=== PATIENT | female | born 1995 | race Two or more races ===

== ENCOUNTER 2017-11-08 13:35 | Emergency (ER) | payer OTHER ==
[2017-11-08 13:53] VITALS: BMI 31.7
--- NOTE | 2017-11-08 14:26 | PDOC ---
History of Present Illness - General Chief Complaint: Pain, Acute Stated Complaint: 2 MONTHS /ABD PAIN Time Seen by Provider: 11/08/17 14:25 - History of Present Illness Initial Comments: 22 year old [id number] 9.5 weeks by ultrasound (performed in [place] 2 weeks prior - 7.5 weeks at the time) presenting with LBP radiating to the suprapubic region bilaterally, dysuria, and occasional spotting. States that she was told she had urinary tract infection at her visit two weeks ago in [place] along with an "inflammation of her urinary tract" for which she was given Ampicillin which she finished 4 days prior. She states that she had 48 hours of resolution of her dysuria but prompt return of symptoms. She has light occasional spotting every few days. Denies fevers, chills, nausea, vomiting, diarrhea, constipation , chest pain, SOB, dyspareunia, vaginal discharge, or other sick symtpoms. 11/08/17 15:35 Past History - Past Medical History Allergies/Adverse Reactions: Allergies Allergy/AdvReac Type Severity Reaction Status Date / Time No Known Allergies Allergy Verified 11/08/17 13:47 Home Medications: Ambulatory Orders Nitrofurantoin Monohyd/M-Cryst [Macrobid -] 100 mg PO BID #14 capsule 11/08/17 COPD: No DVT: No - Immunization History Immunization Up to Date: Yes - Suicide/Smoking/Psychosocial Hx Smoking History: Never smoked Have you smoked in the past 12 months: No Information on smoking cessation initiated: No Hx Alcohol Use: No Drug/Substance Use Hx: No Substance Use Type: None Review of Systems - Review of Systems Constitutional: No: Chills, Diaphoresis, Fever HEENTM: No: Eye Pain, Blurred Vision Respiratory: No: Cough, Orthopnea, Shortness of Breath, Stridor, Wheezing Cardiac (ROS): No: Chest Pain, Edema, Irregular Heart Rate, Syncope ABD/GI: No: Constipated, Diarrhea, Nausea, Vomiting : Yes: Dysuria. No: Discharge, Frequency Musculoskeletal: Yes: Back Pain. No: Joint Pain, Joint Swelling, Muscle Weakness, Neck Pain, Joint Stiffness Integumentary: No: Bruising, Lesions, Lumps Neurological: No: Headache, Numbness Endocrine: No: Excessive Sweating, Intolerance to Heat *Physical Exam - Vital Signs Last Vital Signs Temp Pulse Resp BP Pulse Ox 98.5 F 82 17 130/60 96 11/08/17 13:47 11/08/17 13:47 11/08/17 13:47 11/08/17 13:47 11/08/17 13:47 - Physical Exam General Appearance: Yes: Nourished, Appropriately Dressed HEENT: positive: EOMI, SABINO, Normal Voice Neck: positive: Trachea midline, Normal Thyroid, Supple. negative: Tender Respiratory/Chest: positive: Lungs Clear, Normal Breath Sounds. negative: Chest Tender, Respiratory Distress, Accessory Muscle Use Cardiovascular: positive: Regular Rhythm, Regular Rate Gastrointestinal/Abdominal: positive: Normal Bowel Sounds, Tender (Bilasteral mild suprapubic tenderness), Flat, Soft Musculoskeletal: positive: Normal Inspection. negative: CVA Tenderness Extremity: positive: Normal Capillary Refill, Normal Inspection Integumentary: positive: Normal Color, Dry, Warm Neurologic: positive: Fully Oriented, Alert, Normal Mood/Affect, Normal Response , Motor Strength 5/5 ED Treatment Course - LABORATORY CBC & Chemistry Diagram: 11/08/17 17:09 11/08/17 17:09 Medical Decision Making - Medical Decision Making 22 year old female presenting with dysuria and UTI refractory to ampicillin. UA leuk esterase positive and TVUS demonstrating viable IUP 9 weeks old and with detectable heart rate. Also demonstrated two ovarian cysts, largest one hemorrhagic measuring 2.3cm x 1.6cm. Abdominal pain resolved with PO tylenol. Patient given one dose macrobid (previous completed ampicillin course) and will have 7 day treatment. 11/08/17 16:24 Still pending T&S for questionable rhogam administration. 11/08/17 20:30 Patient O blood type RH negative so needs Rhogam then discharged. 11/08/17 21:15 *DC/Admit/Observation/Transfer Diagnosis at time of Disposition: Vaginal bleeding before 22 weeks gestation UTI (urinary tract infection) Qualifiers: Urinary tract infection type: acute cystitis Hematuria presence: without hematuria Qualified Code(s): N30.00 - Acute cystitis without hematuria - Discharge Dispostion Disposition: HOME Condition at time of disposition: Improved Admit: No - Prescriptions Prescriptions: Nitrofurantoin Monohyd/M-Cryst [Macrobid -] 100 mg PO BID #14 capsule - Referrals Referrals: Amy Duncan [facility] [Primary Care Provider] - - Patient Instructions Printed Discharge Instructions: DI for Vaginal Bleeding During Additional Instructions: Te vimos por dolor de espalda y dolor al orinar. Tu orina est infectada. Por favor tome ranjan antibiticos. [place] mercedes tableta por la maana y mercedes tableta por la noche jennifer 7 napoles. Shauna otra romain muy pronto con mota mdico de obstetricia / ginecologa. El ultrasonido mostr un beb saludable de 9 semanas de edad. Debido a la hemorragia en mota vagina, le administramos un medicamento para protegerlo de cualquier reaccin con la nhi de mota beb. Por favor, use Tylenol para el dolor. Vuelva a la loretta de emergencias si no mejora con mota medicamento o si tiene ms sangrado en la vagina. Print Language: WELSH - Post Discharge Activity
--- NOTE | 2017-11-08 15:50 | PDOC ---
Attending Attestation - Resident Resident Name: [email or web address] - ED Attending Attestation I have performed the following: I have examined & evaluated the patient, The case was reviewed & discussed with the resident, I agree w/resident's findings & plan, Exceptions are as noted - HPI HPI: 11/08/17 15:47 22-year-old female LMP about 9 weeks with recent OB evaluation in [place] 2 weeks ago, also diagnosed with UTI at that time and treated with amoxicillin, completed course 3 days ago, now presents with recurrence of pelvic discomfort with dysuria and frequency. Occasional spotting, no cramping. Chills, no flank pain but radiates to her back. - Physicial Exam PE: 11/08/17 15:48 Afebrile. Vital signs normal. Well-appearing Suprapubic discomfort to palpation without guarding or rebound, no CVA tenderness Neurologically intact, pelvic per resident - Medical Decision Making 11/08/17 15:49 Patient seen and evaluated with the resident. I agree with the overall evaluation, assessment, and management with the following summary of visit: 22-year-old female LMP about 9 weeks with recently diagnosed UTI resents with pelvic discomfort and UTI symptoms. Seems more consistent with recurrence of prior UTI, question secondary to inadequate or incomplete antibiotic course. Rule out threatened AB. Labs with Rh, UA/urine culture Transvaginal ultrasound Will treat for clinical UTI, dispo as per OB workup
[2017-11-08] MEDS ORDERED: ACETAMINOPHEN 500 MG TABLET (FP) PO ONE (15:57)
[2017-11-08 17:26] LABS: BASO % 0.9 % (0-2.0); EOS % 1.1 % (0-4.5); HEMATOCRIT 38.3 % (32.4-45.2); HEMOGLOBIN 12.8 GM/dL (10.7-15.3); LYMPH % 16.2 % (8-40); MCH 30.4 pg (25.7-33.7); MCHC 33.4 g/dl (32.0-36.0); MEAN PLT VOLUME 8.6 fl (7.5-11.1); MONO % 6.6 % (3.8-10.2); NEUT % 75.2 % (42.8-82.8); PLATELET COUNT 231 K/MM3 (134-434); RBC 4.21 M/mm3 (3.60-5.2); RDW 13.1 % (11.6-15.6); WHITE BLOOD COUNT 10.2 K/mm3 (4.0-10.0)
[2017-11-08 17:39] LABS: URINE APPEARANCE SLCLOUDY; URINE BILIRUBIN NEGATIVE (NEGATIVE); URINE BLOOD NEGATIVE (NEGATIVE); URINE COLOR YELLOW; URINE GLUCOSE (UA) NEGATIVE (NEGATIVE); URINE KETONE 2+ (NEGATIVE); URINE NITRITE NEGATIVE (NEGATIVE); URINE UROBILINOGEN NEGATIVE mg/dL (0.2-1.0)
[2017-11-08 18:07] LABS: URINE LEUK ESTERASE 3+ (NEGATIVE); URINE PROTEIN 2+ (NEGATIVE)
[2017-11-08 18:08] LABS: ALBUMIN 3.7 g/dl (3.4-5.0); ANION GAP 9 (8-16); BLOOD UREA NITROGEN 5 mg/dL (7-18); CALCIUM 8.7 mg/dL (8.5-10.1); CHLORIDE 105 mmol/L (98-107); CO2 24 mmol/L (21-32); CREATININE 0.5 mg/dL (0.55-1.02); GLUCOSE,RANDOM 75 mg/dL (74-106); SGPT/ALT 51 U/L (12-78); SODIUM 138 mmol/L (136-145)
[2017-11-08 18:24] LABS: ALK PHOS 73 U/L (45-117); BILIRUBIN,TOTAL 0.5 mg/dL (0.2-1.0); TOT PROT 7.4 g/dl (6.4-8.2)
[2017-11-08 18:31] LABS: POTASSIUM 4.6 mmol/L (3.5-5.1)
[2017-11-08 18:32] LABS: SGOT/AST 36 U/L (15-37)
[2017-11-08] MEDS ORDERED: NITROFURANTOIN MACROCRYSTAL 50 MG CAPSULE (FP) PO SCH (19:15)
[2017-11-08] MEDS ORDERED: NITROFURANTOIN MACROCRYSTAL 50 MG CAPSULE (FP) ONE (19:22)
[2017-11-08 20:09] VITALS: BP 109/60; PULSE 88; TEMP 97.9
[2017-11-08 20:31] LABS: EPI CELLS RARE /HPF (FEW); URINE MUCUS RARE
[2017-11-08] MEDS ORDERED: RHO(D) IMMUNE GLOBULIN 1,500 UNIT DISP.SYRIN IM ONE (21:13)
== END 2017-11-08 21:48 | disposition home or self-care (01) ==
LOC: JER 13:35
DX: O26.891 Other specified pregnancy related conditions, first trimester (principal); O20.8 Other hemorrhage in early pregnancy; O23.41 Unspecified infection of urinary tract in pregnancy, first trimester; Z3A.09 9 weeks gestation of pregnancy
CPT/HCPCS: 36415; 76817-TC; 80053; 81003; 81015; 84702; 85025; 86850; 86900; 86901; 87086; 87186; 99282-25